=== PATIENT | female | born 1985 | race African-American/Black ===

== ENCOUNTER 2018-04-10 09:35 | Day surgery (SDC) | payer MEDICAID ==
[2018-04-07 14:00] LABS: BASOPHILS 0.2 % (0-2); EOSINOPHILS 0.9 % (0-7); HEMATOCRIT 38.5 % (36.0-48.0); HEMOGLOBIN 13.2 g/dL (12-16); LYMPHOCYTES 26.6 % (15-50); MCH 31.5 pg (26.0-34.0); MCHC 34.3 g/dL (31.0-37.0); MCV 91.9 fL (80.0-100.0); MEAN PLATELET VOLUME 9.8 fL (7.4-10.4); NEUTROPHILS 67.3 % (40-80); RBC 4.19 10x6/uL (4.00-5.40); RDW 12.9 % (11.5-14.5); WBC 5.4 10x3/uL (4.8-10.8)
[2018-04-07 14:01] LABS: PLATELET COUNT 262 10x3/uL (130-400)
[2018-04-07 14:08] LABS: CALC OSMOLALITY 276 mosm/kg (275-300); CALCIUM 8.6 mg/dL (8.5-10.1); CARBON DIOXIDE 26.3 mmol/L (21.0-32.0); CHLORIDE - SERUM 105 mmol/L (98-107); CREATININE - SERUM 0.8 mg/dL (0.6-1.3); GLUCOSE 88 mg/dL (74-106); POTASSIUM - SERUM 3.6 mmol/L (3.5-5.1); SODIUM 140 mmol/L (136-145); UREA NITROGEN 9 mg/dL (7-18); eGFR NON AFRICAN AMERICAN 89 mL/min (90-120)
[~2018-04-10] VITALS: Ht 160 cm; Wt 77.1 kg
[~2018-04-10 09:35] MED LIST: PRINIVIL20 MG PO; PROPRANOLOL HCL20 MG PO; ULTRAM50 MG PO
[2018-04-10 11:34] VITALS: BP 119/81; Ht 160 cm; Wt 77.1 kg
[2018-04-10 11:51] LABS: HCG URINE NEGATIVE (NEGATIVE)
--- NOTE | 2018-04-10 15:10 | NUR ---
PT REC'D TO ROOM VIA STRETCHER FROM PACU. DROWSY, BUT RESPONDS TO VERBAL STIMULI. LAP INC X 3 C/D/I WITH DERMABOND TO ABD. JOHNSON DRAINING BEVERLY URINE. FAMILY AT BEDSIDE.
--- NOTE | 2018-04-10 16:15 | NUR ---
JOHNSON CATH D/C'D CATH INTACT. INSTRUCTED TO CALL FOR ASSISTANCE TO GET UP TO VOID. [place] PROVIDED.
--- NOTE | 2018-04-10 17:08 | NUR ---
C/O INCISIONAL PAIN. SEE EMAR FOR TORADOL. TRAY PROVIDED.
--- NOTE | 2018-04-10 17:27 | NUR ---
PT STATES SOME PAIN RELIEF WITH TORADOL, BUT STILL SOME MID ABD PAIN. SEE EMAR.
--- NOTE | 2018-04-10 18:11 | NUR ---
PT RESTING EASILY. STATES PAIN RELIEF WITH PERCOCET.
--- NOTE | 2018-04-10 18:14 | NUR ---
ENCOURAGED DEEP BREATHING AND COUGH.
--- NOTE | 2018-04-10 18:36 | NUR ---
PT UP TO BR TO VOID.
--- NOTE | 2018-04-10 18:39 | NUR ---
PT UP TO BR, VOIDED WITHOUT DIFFICULTY.
--- NOTE | 2018-04-10 18:39 | NUR ---
DR. SÁNCHEZ ADVISED THAT PT DOES NOT WANT TO BE DISCHARGED TONIGHT. WILL ADMIT FOR OVERNIGHT OBS.
--- NOTE | 2018-04-10 19:00 | NUR ---
PT CALLED TO DESK AND STATED SHE WANTED TO BE DISCHARGED. CALL TO DR. SÁNCHEZ TO ADVISE. ORDER REC'D.
--- NOTE | 2018-04-10 19:15 | NUR ---
IV D/C'D CATH INTACT.
--- NOTE | 2018-04-10 19:32 | NUR ---
D/C INSTRUCTIONS EXPLAINED TO PT. VOICED UNDERSTANDING. COPIES OF ALL GIVEN. WRITTEN RX'S FOR PERCOCET, MOTRIN AND GABAPENTIN ALSO GIVEN.
--- NOTE | 2018-04-10 19:45 | NUR ---
D/C'D HOME VIA W/C TO PRIVATE CAR.
--- NOTE | 2018-04-11 10:33 | OP ---
PATIENT NAME: CALEB GRAHAM MEDICAL RECORD: [id number] :87 LOCATION:D.OPS ADMISSION DATE: SURGEON: REN SÁNCHEZ MD DATE OF OPERATION: 04/10/2018 PREOPERATIVE DIAGNOSES: 1. Dysfunctional uterine bleeding. 2. Pelvic pain, left greater than right. 3. Dysmenorrhea. POSTOPERATIVE DIAGNOSES: 1. Dysfunctional uterine bleeding. 2. Pelvic pain, left greater than right. 3. Dysmenorrhea. 4. Endometriosis. PROCEDURES PERFORMED: 1. Diagnostic laparoscopy. 2. Laparoscopic subtotal hysterectomy. 3. Bilateral salpingectomy. 4. Left oophorectomy. SURGEON: Ren Sánchez MD ENGINEER: Jax Dove. ANESTHESIOLOGIST: Dr. Evans. ANESTHESIA: General. FINDINGS: Uterus is slightly enlarged and boggy. Both tubes are interrupted but otherwise unremarkable. Both ovaries were unremarkable. Active endometriosis was identified on the left uterosacral ligament. What was visualized at the abdominal anatomy was unremarkable. SPECIMENS REMOVED: 1. Uterus without cervix morcellated. 2. Left ovary. 3. Right and left tube. SPECIMEN DISPOSITION: Pathology. ESTIMATED BLOOD LOSS: Less than or equal to 100 cc. FLUIDS: 1250 cc of lactated Ringer's. URINE OUTPUT: 75 cc of clear urine. COMPLICATIONS: None. DRAINS: Whipple to gravity discontinued upon arrival to the floor. INDICATIONS: The patient is a 33-year-old female with intense pelvic pain, dyspareunia and dysmenorrhea. The patient also has regular heavy periods. The patient is consented for diagnostic laparoscopy, laparoscopic subtotal OPERATIVE REPORT [id number] CALEB GRAHAM hysterectomy and a left oophorectomy given chronic deep pelvic pain, left greater than right. DESCRIPTION OF PROCEDURE: After informed consent was assured, the patient was taken to the operating room where anesthetic was obtained without difficulty. The patient now prepped and draped in the usual sterile fashion. An incision was made at the umbilicus to accommodate a 5-mm trocar, which was inserted without difficulty and pneumoperitoneum developed. The patient was placed in Trendelenburg position and right and left lower quadrant ports were placed. The right lower quadrant port is a -12 XL, left lower quadrant port is 5-mm port. All sites were injected with Marcaine prior to the incision being made. A grasper was inserted from the left port into the right tube and ovary was elevated. Using the coagulation cutter, the attachment of the tube to the adnexa was serially compressed, coagulated, and . The tube was dissected free of the uterus and removed through the 10-mm trocar. The remaining portions of the uteroovarian ligament and round ligaments were compressed, coagulated, and . The anterior leaf of the broad ligament was opened and dissection to the midline is completed forming a half of the bladder flap. The posterior leaf of the broad ligament was opened and the connective tissue of the right, dissected free of the right vascular bundle. The right vascular bundle was then compressed, coagulated, and . Attention was directed to the left side. The left tube and ovaries elevated. Using the coagulation cutter, the infundibulopelvic ligaments compressed, coagulated, and . This dissection was carried down underneath the left ovary and tube across the round ligament and the anterior leaf of the broad ligament. The anterior leaf of the broad ligament is dissected all the way to the bladder flap. The posterior leaf was dissected free and the connective tissue dissected away from the left vascular bundle. The left vascular bundle was compressed, coagulated, and to the level of the internal os opposite of the right. Using Harmonic scalpel, the uterus was removed from its attachment to the cervix. This begins on the left and concludes on the right. A PlasmaSORD is now inserted into the pelvis and the uterus was removed in several segments along with both tubes and left ovary. After removal of the uterine tissue with the PlasmaSORD, a 10-12 port were replaces this and the pelvis was irrigated. Straight portions of the uterus found in the deep cul-de-sac was removed. Endometriosis, which was identified during this portion of the procedure were fulgurated. Endocervical canal was cauterized. Interceed was placed over the cervical stump. Sponge, lap, and needle counts correct times 2. The accessory trocars were removed as the pneumoperitoneum was released. Primary trocars were removed and all sites closed with subcuticular stitch and Dermabond. TRANSINT:[id number] Voice Confirmation ID: [id number] DOCUMENT ID: [id number] REN SÁNCHEZ MD at 1033 CC: [id number] DICTATION DATE: 04/10/18 3686 COSTUME MAKER: 04/10/18 9640 [facility] 04/10/18 [facility] [address] [id number]
== END 2018-04-10 19:46 | disposition home or self-care (01) ==
LOC: D.OPS 09:35 → D.PAN 10:55 → D.OPS 11:35
PROVIDERS: Obstetrics & Gynecology
DX: N93.8 Other specified abnormal uterine and vaginal bleeding (principal); N80.2 Endometriosis of fallopian tube; N80.1 Endometriosis of ovary; N80.0 Endometriosis of uterus; N94.6 Dysmenorrhea, unspecified

== ENCOUNTER 2019-07-30 13:00 | Day surgery (SDC) | payer BC ==
[2019-07-26 10:52] LABS: BASOPHILS 0.2 % (0-2); EOSINOPHILS 0.8 % (0-7); HEMATOCRIT 39.5 % (36.0-48.0); HEMOGLOBIN 12.5 g/dL (12-16); IMMATURE GRANULOCYTES 0.2 % (0-5); LYMPHOCYTES 32.3 % (15-50); MCH 31.3 pg (26.0-34.0); MCHC 31.6 g/dL (31.0-37.0); MEAN PLATELET VOLUME 10.1 fL (7.4-10.4); MONOCYTES 8.7 % (2-11); NEUTROPHILS 57.8 % (40-80); PLATELET COUNT 210 10x3/uL (130-400); RBC 3.99 10x6/uL (4.00-5.40); RDW 13.3 % (11.5-14.5); WBC 5.3 10x3/uL (4.8-10.8)
[2019-07-26 11:11] LABS: CALC OSMOLALITY 281 mosm/kg (275-300); CALCIUM 8.8 mg/dL (8.5-10.1); CARBON DIOXIDE 32.5 mmol/L (21.0-32.0); CHLORIDE - SERUM 106 mmol/L (98-107); CREATININE - SERUM 0.8 mg/dL (0.6-1.3); GLUCOSE 90 mg/dL (74-106); POTASSIUM - SERUM 4.3 mmol/L (3.5-5.1); SODIUM 142 mmol/L (136-145); UREA NITROGEN 9 mg/dL (7-18); eGFR NON AFRICAN AMERICAN 88 mL/min (90-120)
[~2019-07-30] VITALS: Ht 160 cm; Wt 70.3 kg
--- NOTE | ~2019-07-30 | OP ---
PATIENT NAME: CALEB GRAHAM MEDICAL RECORD: [id number] :87 LOCATION:D.OPS ADMISSION DATE: SURGEON: DHIRAJ SÁNCHEZ MD DATE OF OPERATION: 07/30/2019 PREOPERATIVE DIAGNOSES: 1. Dysfunctional bleeding. 2. Pelvic pain. 3. Endometriosis. POSTOPERATIVE DIAGNOSES: 1. Dysfunctional bleeding. 2. Pelvic pain. 3. Endometriosis. 4. Pelvic adhesions. PROCEDURE PERFORMED: 1. Diagnostic laparoscopy. 2. Laparoscopic trachelectomy. 3. Right oophorectomy. 4. Lysis of adhesions. SURGEON: Dhiraj Sánchez MD OPERATIONS INSPECTOR: [place]. ELECTRONICS TECHNOLOGY INSTRUCTOR: Farhad Agosto. ANESTHESIOLOGIST: Dr. Evans. ANESTHETIC: General. FINDINGS: Active endometriosis found in the posterior aspect of the cervix, left of midline. The right ovary is unremarkable. What was visualized at the abdominal anatomy was unremarkable. There is adhesion of epiploic fat to the top of the cervical stump. SPECIMEN REMOVED: 1. Cervix. 2. Ovaries. SPECIMEN DISPOSITION: All specimens to pathology. ESTIMATED BLOOD LOSS: Less than or equal to 75 cc. FLUIDS: 1500 cc lactated Ringer's. URINE OUTPUT: 150 cc of clear urine. COMPLICATIONS: None. DRAIN: Whipple to gravity. INDICATIONS: The patient is a 34-year-old female with a history of dysmenorrhea and abnormal uterine bleeding. The patient received a laparoscopic subtotal OPERATIVE REPORT [id number] CALEB GRAHAM hysterectomy and LSO previously. The patient had continued pain and received Lupron. The patient desires definitive treatment for persistent pelvic pain and spotting after LSH. DESCRIPTION OF PROCEDURE: After informed consent was assured, the patient was taken to the operating room, anesthetic was obtained. The patient was prepped and draped in the usual sterile fashion. A 5-mm port was placed in the an infraumbilical incision and pneumoperitoneum established. With the patient in steep Trendelenburg position, an 11-mm port was placed in the right lower quadrant and a 5-mm port placed in the left lower quadrant. Using a Thunderbeat coagulation cutter and with graspers inserted from the left side. The adhesion of the fat to the cervical stump is placed on gentle traction and compressed, coagulated, and from its attachment to the cervix. The attention was now directed anteriorly. To delineate the margins of the bladder, the bladder was retrograde filled with sterile formula. Dissection begins with EndoShears. The bladder was mobilized off the cervical stump. Once the bladder had been fully mobilized off the stump, a laparoscopic peanut was used to further dissection. Thunderbeat coagulation cutter was now used to compress, coagulate, and separate the uterine artery at the level of the cervix. This allowed us the vascular bundle to fall out laterally. Once this was occurred with the cup that was previously inserted into the vagina and secured with the stitch,the vaginal vault was entered at the 12 o'clock position. Using the green cup of the VCare as a line for dissection, the attachment of the cervix to the vagina is from the 12 o'clock to the 6 o'clock position from the left and then 12 to the 6 o'clock position on the right. Once The cervical stump has been removed from the vaginal cuff, it was pulled into the vagina with a pneumoperitoneum remaining. The right ovary is inspected and elevated. The infundibulopelvic ligament was compressed, coagulated, and and the ovary was placed into the vagina. With the pneumoperitoneum being maintained, a 0 Stratafix stitch was placed in the pelvis through the 11-mm port. Using the CT-2 needle, the cuff was closed in a running fashion from the patient's right to the left. Once the cuff has been closed, the stitches was cut close to the peritoneum and the needle removed. The pelvis was irrigated, irrigant removed and Efrain placed over the cervical cuff. Sponge, lap, and needle counts correct times 2. The pneumoperitoneum was released. The specimens were removed from the vagina and all port sites inspected. The accessory ports were removed under direct visualization and then the primary ports were removed. All sites were closed with subcuticular stitch and sterile dressing applied. Sponge, lap, needle counts were correct times 2. The patient went to the recovery area in stable condition. TRANSINT:[id number] Voice Confirmation ID: [id number] DOCUMENT ID: [id number] DHIRAJ SÁNCHEZ MD CC: [id number] DICTATION DATE: 08/01/19628 SCLEROSCOPE TESTER: 08/01/19721 [facility] 07/30/19 [facility] [address] [place] [address]
[2019-07-30 06:03] VITALS: BP 135/96; Ht 160 cm; Wt 70.3 kg
--- NOTE | 2019-07-30 09:46 | NUR ---
0940 JOHNSON CATHETER DISCONTINUED
--- NOTE | 2019-07-30 10:21 | NUR ---
PT IS RESTING QUIETLY IN BED. ABLE TO TOLERATE LIQUIDS AT THIS TIME. WILL CONTINUE TO MONITOR.
--- NOTE | 2019-07-30 11:08 | NUR ---
CALLED DR. SÁNCHEZ FOR DC. ORDERS. HE STATES THAT IF PT MEETS DC CRITERIA PT IS OK TO GO HOME.
--- NOTE | 2019-07-30 11:17 | NUR ---
PT UNABLE TO VOID AT THIS TIME. WILL CONTINUE TO MONITOR.
--- NOTE | 2019-07-30 11:28 | NUR ---
DC INSTRUCTIONS GIVEN TO PT. STATES UNDERSTANDING. PT HAS NOT VOIDED YET. WILL CONTINUE TO MONITOR.
--- NOTE | 2019-07-30 12:30 | NUR ---
ABLE TO VOID, IV DC'D REMOVED WITH TIP INTACT. WHEELED OUT.
[~2019-07-30 13:00] MED LIST changes: +DILTIAZEM 24HR180 M4 PO; +DIOVAN40 MG PO; +PAXIL20 MG PO; +VALIUM10 MG PO
--- NOTE | 2019-07-30 13:03 | NUR ---
PT LEFT UNIT VIA WC AT 1240
== END 2019-07-30 13:01 | disposition home or self-care (01) ==
LOC: D.OPS 13:00
PROVIDERS: ATTEND Obstetrics & Gynecology
DX: N92.1 Excessive and frequent menstruation with irregular cycle (principal); R10.2 Pelvic and perineal pain; N80.9 Endometriosis, unspecified; N73.6 Female pelvic peritoneal adhesions (postinfective)

== ENCOUNTER 2020-09-19 08:05 | Day surgery (SDC) | payer BC ==
[2020-09-16 09:58] LABS: CALC OSMOLALITY 277 mosm/kg (275-300); CALCIUM 9.5 mg/dL (8.5-10.1); CARBON DIOXIDE 31.3 mmol/L (21.0-32.0); CHLORIDE - SERUM 104 mmol/L (98-107); CREATININE - SERUM 0.7 mg/dL (0.6-1.3); SODIUM 140 mmol/L (136-145); UREA NITROGEN 10 mg/dL (7-18); eGFR NON AFRICAN AMERICAN > 90 mL/min (90-120)
[2020-09-16 10:01] LABS: GLUCOSE 99 mg/dL (74-106)
[2020-09-16 10:06] LABS: BASOPHILS 0.2 % (0-2); EOSINOPHILS 0.7 % (0-7); HEMATOCRIT 36.3 % (36.0-48.0); HEMOGLOBIN 11.9 g/dL (12-16); LYMPHOCYTES 22.8 % (15-50); MCH 31.5 pg (26.0-34.0); MCHC 32.9 g/dL (31.0-37.0); MCV 95.6 fL (80.0-100.0); MEAN PLATELET VOLUME 8.2 fL (7.4-10.4); NEUTROPHILS 71.3 % (40-80); PLATELET COUNT 226 10x3/uL (130-400); RDW 13.2 % (11.5-14.5); WBC 6.7 10x3/uL (4.8-10.8)
[~2020-09-19] VITALS: Ht 160 cm; Wt 59.0 kg
--- NOTE | ~2020-09-19 | OP ---
PATIENT NAME: CALEB GRAHAM MEDICAL RECORD: [id number] :87 LOCATION:D.OPS ADMISSION DATE: SURGEON: PIERRE CONKLIN MD DATE OF OPERATION: 09/19/2020 PREOPERATIVE DIAGNOSES: 1. Pelvic pain. 2. History of total laparoscopic hysterectomy. POSTOPERATIVE DIAGNOSES: 1. Pelvic pain. 2. History of total laparoscopic hysterectomy. PROCEDURE: Diagnostic laparoscopy. SURGEON: Pierre Conklin MD ANESTHESIA: General endotracheal. INTRAVENOUS FLUIDS: Per anesthesia record. ESTIMATED BLOOD LOSS: Minimal. SPECIMENS: None. FINDINGS: 1. Grossly normal-appearing small and large bowel. 2. Normal postop appearing changes, status post TLH. COMPLICATIONS: None apparent. PROCEDURE: The patient was taken to the operating room where general anesthesia was achieved without difficulty. The patient was then prepped and draped in normal sterile fashion in the dorsal lithotomy position in the dorsal supine position. SCDs were on and functioning normally. A Whipple catheter in place and was draining freely. At this point, a 5-mm skin incision was made infraumbilically and the 5 mm bladeless trocar was used to enter the intraperitoneal space under direct visualization of the laparoscope. Following entry into the peritoneum, introducer was removed and intraperitoneal placement was confirmed by the laparoscope. Opening pressure was found to be less than 8 mmHg. The patient was then insufflated. A second 5-mm port was placed in the midline approximately 4 cm above the pubic symphysis. This was placed into the intraperitoneal space under direct visualization of the laparoscope. Survey of the abdomen and pelvis was performed. No significant adhesive disease was noted. Previous post-surgical sites were evaluated and no evidence of adhesive disease was noted. Following survey of the abdomen and pelvis, the patient was then desufflated. The trocars were removed and the skin repaired with 3-0 Vicryl in an interrupted fashion. The Whipple catheter was removed. The patient was transferred to postanesthesia recovery stable without incident. TRANSINT:[id number] Voice Confirmation ID: [id number] DOCUMENT ID: [id number] OPERATIVE REPORT [id number] CALEB GRAHAM PIERRE CONKLIN MD CC: [id number] DICTATION DATE: 09/30/20 0307 POEM WRITER: 09/30/20 0354 [facility] 09/19/[address] [place] [address]
[~2020-09-19 08:05] MED LIST changes: +DIOVAN320 MG PO; +MULTI-DAY VITAM1 TAB PO; +PROTONIX40 MG PO
[2020-09-19 08:42] VITALS: BP 112/65; Ht 160 cm; Wt 59.0 kg
--- NOTE | 2020-09-19 15:06 | NUR ---
1430 IV REMOVED AND PRESSURE HELD. INSTRUCTIONS GIVEN
== END 2020-09-19 14:45 | disposition home or self-care (01) ==
LOC: D.OPS 08:05
PROVIDERS: Anesthesiology; ATTEND Obstetrics & Gynecology
DX: R10.2 Pelvic and perineal pain (principal); Z90.710 Acquired absence of both cervix and uterus; G89.29 Other chronic pain; F32.9 Major depressive disorder, single episode, unspecified; I10 Essential (primary) hypertension; K21.9 Gastro-esophageal reflux disease without esophagitis